=== PATIENT | female | born 1980 | race Caucasian/White ===

== ENCOUNTER → 2016-10-20 | Outpatient (CLI) | payer BC ==
[~2016-10-20] MED LIST: ESCI1TAB10 PO; LORA-741 PO; VENL1CAP92 PO; VENL75CA PO
== END | disposition home or self-care (01) ==
LOC: C.PAPS 12:06
PROVIDERS: ATTEND Obstetrics & Gynecology
DX: Z01.419 Encounter for gynecological examination (general) (routine) without abnormal findings (principal)

== ENCOUNTER → 2016-12-15 | Day surgery (SDC) | payer BC ==
[2016-11-19 17:09] LABS: BASO % 0.6 %; BASO ABS # 0.04 K/uL (0-0.2); COMPLETE YES; EOS % 1.1 %; HEMATOCRIT 35.7 % (37-47); IG% 0.1 %; LYMPH % 42.5 %; LYMPH ABS # 3.05 K/uL (1.2-3.4); MEAN CELL VOLUME 84.8 fL (80-100); MEAN CORPUSCULAR HGB CONC 34.2 g/dl (32-36); MEAN PLATELET VOLUME 9.4 fL (7.4-10.4); MONO % 13.2 %; NEUT % 42.5 %; PLATELET COUNT 250 K/uL (130-400); RED BLOOD COUNT 4.21 M/uL (4.2-5.4); WHITE BLOOD COUNT 7.18 K/uL (4.8-10.8)
[2016-11-25 09:52] VITALS: Ht 160 cm; Wt 57.7 kg
[~2016-12-15] VITALS: Ht 160 cm; Wt 57.7 kg
[~2016-12-15] MED LIST changes: +ATROPINE SULFATE 0.1 MG/ML 5ML SYR IV PRN; +DEXAMETHASONE SOD INJ 4 MG/ML VIAL IV PRN; +DEXAMETHASONE SOD INJ 4 MG/ML VIAL ONE; -ESCI1TAB10 PO; +EpHEDrine SULFATE 50MG/5ML SYR ONE; +EpHEDrine SULFATE INJ 50 MG/ML AMP IV PRN; +FENTANYL CITRATE INJ 50 MCG/1 ML 2 ML VIAL IV PRN; +FENTANYL CITRATE INJ 50 MCG/1 ML 2 ML VIAL ONE; +GLYCOPYRROLATE INJ 0.2 MG/ML VIAL ONE; +IBUPROFEN 600 MG TAB PO PRN; +KETOROLAC TROMETHAMINE 30 MG/ML VIAL IV. PRN; +KETOROLAC TROMETHAMINE 30 MG/ML VIAL ONE; +LABETALOL HCL IV 5 MG/ML 20ML IV PRN; +LIDOCAINE HCL 2% 2 ML VIAL (20MG/ML) ONE; +METOCLOPRAMIDE HCL INJ 5 MG/ML 2 ML VIAL IV PRN; +MIDAZOLAM HCL 1 MG/ML 2ML VIAL ONE; +MoRPHine SULFATE 10 MG/ML CARP/VIAL IV PRN; +NEOSTIGMINE METHYLSULFATE 5 MG/5 ML SYR ONE; +ONDANSETRON INJ 2 MG/ML 2 ML VIAL IV PRN; +ONDANSETRON INJ 2 MG/ML 2 ML VIAL ONE; +OXYCODONE/ACETAMINOPHEN 5-325 TAB PO PRN; +PHENYLEPHRINE 100MCG/ML 5ML SYR IV PRN; +PROMETHAZINE HCL INJ 25 MG in SODIUM CHLORIDE 0.9% 50ML 50 ML IV PRN; +PROPOFOL IV EMULSION 10 MG/ML 20 ML VIAL IV ONE; +ROCURONIUM BROMIDE 10 MG/ML 5 ML VIAL ONE; +SODIUM CHLORIDE 0.9% 1000ML 1,000 ML IV SCH
--- NOTE | 2016-12-15 06:57 | History & Physical Bridge - [place] ---
H&P Re-Evaluation Bridge Note: I have examined the patient, reviewed the History & Physical and in the interval since the performance of the History & Physical I have noted the following changes of clinical significance: No changes noted
[2016-12-15] MEDS: LACTATED RINGER'S 1000ML 1,000 ML IV SCH ×2 (07:10→10:03)
--- NOTE | 2016-12-15 09:27 | [facility] Post Operative Brief Note ---
Immediate Operative Summary Operative Date Dec 15, 2016. Pre-Operative Diagnosis Endometrial polyp Post-Operative Diagnosis same Procedure(s) Performed Dilatation And Curettage, Hysteroscopy, Polypectomy via Myosure Surgeon Dr Corbett Launderette Attendant Surgeon(s) 0 Estimated Blood Loss 5 ml Findings Uterus retroverted, sounded to 8cm. 3 small endometrial polyps noted. Bilateral tubal ostia visualized. Moderate amount of fluffy endometrium. Specimens A. Endometrial curettings and polyp Drains bladder emptied prior to procedure Anesthesia general with LMA Complication(s) None Disposition Recovery Room / PACU
--- NOTE | 2016-12-15 09:30 | Discharge Instructions-SurgCtr ---
Discharge Instructions Date of Service Dec 15, 2016. Visit Reason for Visit: Endometrial Polyp Discharge Discharge Diagnosis / Problem: endometrial polyp Discharge Goals Goal(s): Diagnostic testing, Therapeutic intervention Activity Recommendations Activity Limitations: per Instructions/Follow-up section Anesthesia . Post Anesthesia Instructions: If you have had General Anesthesia or IV Sedation: * Do not drive today. * Resume driving when surgeon permits. * Do not make important decisions or sign legal documents today. * Call surgeon for: 1. Temperature elevations greater than 101 degrees F. 2. Uncontrollable pain. 3. Excessive bleeding. 4. Persistent nausea and vomiting. 5. Medication intolerance (nausea, vomiting or rash). * For nausea and vomiting use only clear liquids such as: tea, soda, bouillon until nausea subsides, then gradually increase diet as tolerated. * If you have any concerns or questions, call your surgeon's office. If physician is unavailable and it is an emergency, call 911 or go to the nearest emergency room. . Instructions / Follow-Up Instructions / Follow-Up ACTIVITY RECOMMENDATIONS: * Avoid tampons, douching, hot tubs, pools, and intercourse until bleeding has stopped. * May shower as usual. * No strenuous activity for 24-48 hours. After 24-48 hours, you may do anything you feel like doing (driving and sports are okay). SPECIAL CARE INSTRUCTIONS: Special Diet: * Mild nausea may occur in the immediate post-operative period. * Take clear liquids such as tea, cola or bouillon until all nausea has subsided; you may then resume your normal diet. Special Care: * Light bleeding and vaginal spotting can last from a few days to 3-4 weeks. Call your doctor if bleeding becomes heavier than the heaviest part of your period. * Check your temperature twice a day for one week. If it goes above 100.4 degrees Fahrenheit (38.0 Celsius), notify your doctor. * Call your doctor's office for an appointment for 6 weeks after your surgery. FOLLOW-UP VISIT: Call your doctor's office for an appointment for 6 weeks after your surgery. Diet Recommendations Home Diet: resume previous diet Procedures Procedures Performed: Dilatation And Curettage, Hysteroscopy, Polypectomy via Myosure Pending Studies Studies pending at discharge: yes List of pending studies: endometrial polyp/currettings Medical Emergencies . Who to Call and When: Medical Emergencies: If at any time you feel your situation is an emergency, please call 911 immediately. . Non-Emergent Contact Non-Emergency issues call your: Primary Care Provider, Physical Aerodynamicist . . "Provider Documentation" section prepared by Thelma Corbett.
[2016-12-15 10:16] VITALS: TEMP 36.6
[2016-12-15 10:41] VITALS: BP 111/71; PULSE 66; O2SAT 96
--- NOTE | 2016-12-15 10:43 | Anesthesia Progress Nt - [facility] ---
Anesthesia Post Op Note Date & Time Dec 15, 2016 at 10:43 Vital Signs Pain Intensity: 4 Vital Signs Past 12 Hours Date Time Temp Pulse Resp B/P Pulse Ox O2 Delivery O2 Flow Rate FiO2 12/15/16 10:41 66 16 111/71 96 Room Air 12/15/16 10:16 36.6 66 16 109/73 100 Room Air 12/15/16 10:08 71 20 100 12/15/16 10:08 71 20 12/15/16 10:08 37.4 100 Room Air 12/15/16 10:05 107/72 12/15/16 10:03 73 13 12/15/16 10:03 74 13 100 12/15/16 10:00 115/68 12/15/16 09:58 74 15 99 12/15/16 09:58 73 15 12/15/16 09:55 101/57 12/15/16 09:53 74 17 12/15/16 09:53 75 17 100 12/15/16 09:52 90 13 12/15/16 09:52 82 13 100 12/15/16 09:50 109/64 12/15/16 09:47 83 14 12/15/16 09:47 80 14 100 12/15/16 09:45 110/57 12/15/16 09:42 76 17 12/15/16 09:42 75 17 100 12/15/16 09:40 107/66 12/15/16 09:39 116/58 12/15/16 09:37 83 27 100 12/15/16 09:37 83 27 12/15/16 09:36 87/70 12/15/16 09:32 82 17 12/15/16 09:32 81 17 100 12/15/16 09:31 122/60 12/15/16 09:27 72 13 12/15/16 09:27 71 13 100 12/15/16 09:25 115/68 12/15/16 09:22 75 131/64 100 12/15/16 09:22 36.6 85 12 131/64 100 Mask 7 12/15/16 09:22 75 12/15/16 06:54 36.7 74 16 106/68 97 Room Air Notes Mental Status: alert / awake / arousable, participated in evaluation Pt Amnestic to Procedure: Yes Nausea / Vomiting: adequately controlled Pain: adequately controlled Airway Patency, RR, SpO2: stable & adequate BP & HR: stable & adequate Hydration State: stable & adequate Anesthetic Complications: no major complications apparent
--- NOTE | 2016-12-15 11:21 | OPERATIVE REPORT ---
DATE OF OPERATION: 12/15/2016 PREOPERATIVE DIAGNOSIS: Endometrial polyp. POSTOPERATIVE DIAGNOSIS: Same. PROCEDURES PERFORMED: Hysteroscopy, dilation and curettage with polypectomy via MyoSure device. SURGEON: Thelma Corbett DO PACK OUT OPERATOR: None. ESTIMATED BLOOD LOSS: 5 mL FINDINGS: Uterus retroverted, sounded to 8 cm. Three small endometrial polyps noted. Bilateral tubal ostia visualized. Moderate amount of fluffy endometrium. SPECIMENS: Endometrial curettings and polyp. DRAINS: Bladder emptied prior to procedure. ANESTHESIA: General LMA. COMPLICATIONS: None. DISPOSITION: Stable and good to recovery room. INDICATIONS FOR PROCEDURE: A 36-year-old G0 who presents for a hysteroscopy, D\T\C and polypectomy due to found on ultrasound that was performed as part pork out for intermenstrual spotting, polyps were found on ultrasound. DESCRIPTION OF PROCEDURE: The patient was seen in the preoperative holding area where risks, benefits, alternatives to surgery were reviewed. She elected to proceed with surgery. Informed consent had previously been obtained in the office under no duress. The patient was taken to the operating room where general anesthesia was introduced. She was prepared and draped in the usual fashion in the dorsal lithotomy position with feet in candy cane stirrups. A timeout was confirmed. The Dukes retractor was placed in the vagina and the cervix was visualized. The anterior lip was grasped with a single tooth tenaculum. The uterus was sounded and the cervix was gently dilated to admit the MyoSure hysteroscope. The scope was inserted, intrauterine placement was confirmed by visualization of the bilateral tubal ostia. Pictures were taken. The MyoSure device was used to perform polypectomy of multiple small polyps on the intrauterine mining. This specimen was retained and sent to pathology. At the same time, the polypectomy MyoSure device was used to perform a gentle curettage of the lining. The instruments were removed from the vagina. Excellent hemostasis was noted. The patient was awoken from anesthesia and taken to the recovery room in stable and good condition. She will need to follow up in the office in 2 weeks and we will review pathology results at that time. I attest to the content of the Intraoperative Record and any orders documented therein. Any exceptio ns are noted below.
== END | disposition home or self-care (01) ==
LOC: X.SURG 06:40
PROVIDERS: ATTEND Obstetrics & Gynecology
DX: N84.0 Polyp of corpus uteri (principal); N92.1 Excessive and frequent menstruation with irregular cycle; N94.6 Dysmenorrhea, unspecified